=== PATIENT | male | born 1990 | race Caucasian/White ===

== ENCOUNTER 2016-11-07 16:18 | Emergency (ER) | payer OTHER ==
[~2016-11-07] VITALS: Ht 167.6 cm; Wt 76.0 kg
[2016-11-07 16:38] VITALS: BP 132/74
[2016-11-07] MEDS ORDERED: HYDROcodone/APAP 5/325 TABLET PO ONE (17:00)
[2016-11-07] MEDS ORDERED: IBUPROFEN 200 MG TABLET PO ONE (17:00)
[2016-11-07] MEDS ORDERED: HYDROcodone/APAP 5/325 TABLET ONE (17:24)
[2016-11-07] MEDS ORDERED: IBUPROFEN 200 MG TABLET ONE (17:24)
[2016-11-07] MEDS ORDERED: ONDANSETRON ODT 4 MG ONE (17:24)
[2016-11-07] MEDS ORDERED: ONDANSETRON ODT 4 MG PO ONE (17:30)
== END 2016-11-07 17:43 | disposition home or self-care (01) ==
LOC: ED 17:37
DX: S93.492A Sprain of other ligament of left ankle, initial encounter (principal); X50.1XXA Overexertion from prolonged static or awkward postures, initial encounter; Y93.89 Activity, other specified; Y99.0 Civilian activity done for income or pay; Y92.69 Other specified industrial and construction area as the place of occurrence of the external cause
CPT/HCPCS: 73610; 73630; 99284; Q0162

== ENCOUNTER 2017-08-16 18:30 | Emergency (ER) | payer OTHER ==
[~2017-08-16] VITALS: Ht 170.2 cm; Wt 70.0 kg
[2017-08-16 18:44] VITALS: BP 124/59
[2017-08-16] MEDS ORDERED: KETOROLAC 30 MG/1 ML ONE (18:55)
[2017-08-16] MEDS ORDERED: KETOROLAC 30 MG/1 ML IVPush ONE (19:00)
[2017-08-16 19:24] LABS: TROPONIN I < 0.015 ng/mL (0.000-0.045)
== END 2017-08-16 20:10 | disposition home or self-care (01) ==
LOC: ED 19:45
DX: R07.2 Precordial pain (principal); M94.0 Chondrocostal junction syndrome [Tietze]; Z79.82 Long term (current) use of aspirin
CPT/HCPCS: 36415; 71046; 84484; 93005; 96374; 99285; J1885

== ENCOUNTER → 2018-02-08 | Outpatient (CLI) | payer OTHER | END | disposition home or self-care (01) | LOC: CFH 11:02 | PROVIDERS: ATTEND Chiropractor | DX: M99.01 Segmental and somatic dysfunction of cervical region (principal); M99.02 Segmental and somatic dysfunction of thoracic region; M99.03 Segmental and somatic dysfunction of lumbar region; M99.04 Segmental and somatic dysfunction of sacral region | CPT/HCPCS: 72040; 72072; 72100; 72170 ==